=== PATIENT | female | born 1985 | race Caucasian/White ===

== ENCOUNTER 2016-08-24 07:39 | Emergency (ER) | payer MEDICAID ==
[~2016-08-24] VITALS: Ht 170.2 cm; Wt 88.6 kg
[~2016-08-24 07:39] MED LIST: AMOXICILLIN 50500 MG PO; AMOXICILLIN875 MG PO; BACTRIM DS 8001 TAB PO; CEFTIN 250250 MG/TAB PO; CEPHALEXIN500 M1 PO; CLEOCIN HC150 MG/CAP PO; DOXYCYCLINE 10100 MG PO; HYDROCODONE/APAP; LORTAB 5/500 501 TAB PO; MACROBID 1100 MG/CAP PO; METRONIDAZOLE500 MG PO; MOTRIN 800800 MG/TAB PO; NAPROSYN500 MG PO; NO HOME MEDICATIONS; NORCO 325 MG-51 TAB PO; PHENERGAN 25 TA25 MG PO; PRENATAL MVI PO; SEPTRA DS 8001 TAB PO; TYLENOL 325MG325 MG PO; ZITHROMAX 250M250 MG PO; ZOFRAN ODT4 MG PO
[2016-08-24 07:40] VITALS: BP 125/87; TEMP 98
[2016-08-24 08:24] LABS: BASO # 0.1 (0.0-0.2); BASO % 0.8 % (0.0-2.0); EOS # 0.2 (0.0-0.7); EOS % 1.9 % (0-4.0); GRAN # 6.4 (1.4-6.5); GRAN % 70.4 % (42.2-75.2); HEMATOCRIT 39.8 % (37.0-47.0); LYMPH # 1.9 (1.2-3.4); LYMPH % 21.2 % (20.0-51.0); MEAN CELL VOLUME 87 fl (80.0-100.0); MEAN CORPUSCULAR HEMOGLOBIN 28 pg (27.0-31.0); MEAN CORPUSCULAR HGB CONC 33 g/dl (33.0-37.0); MEAN PLATELET VOLUME 11.1 fl (7.4-10.4); MONO # 0.5 (0.1-0.6); MONO % 5.4 % (1.7-9.3); PLATELET COUNT 221 K/mm3 (130-400); RED BLOOD COUNT 4.59 M/mm3 (4.10-5.30); REDCELL DISTRIBUTION WIDTH-CV 13.2 % (11.5-14.5); WHITE BLOOD COUNT 9.1 K/mm3 (4.8-10.8)
[2016-08-24 08:34] LABS: ADJUSTED CALCIUM 9.2 mg/dL (8.4-10.2); ALBUMIN 3.9 gm/dL (3.5-5.0); BILIRUBIN,TOTAL 0.4 mg/dL (0.0-1.0); CALCIUM 9.1 mg/dL (8.4-10.2); CREATININE, serum 0.71 mg/dL (0.52-1.25); POTASSIUM 3.9 mmol/L (3.4-5.0); TOTAL PROTEIN 7.2 gm/dL (6.4-8.2)
[2016-08-24 09:11] VITALS: PULSE 75
== END 2016-08-24 09:12 | disposition home or self-care (01) ==
LOC: COL.ER 07:39
PROVIDERS: Physician Assistant
DX: K29.70 Gastritis, unspecified, without bleeding (principal)
CPT/HCPCS: C9113; J2405; J2765; J7030

== ENCOUNTER 2016-11-29 03:32 | Emergency (ER) | payer MEDICAID ==
[~2016-11-29] VITALS: Ht 170.2 cm; Wt 88.6 kg
[2016-11-29 03:35] VITALS: TEMP 98.1
[2016-11-29 04:16] LABS: BASO # 0.1 (0.0-0.2); BASO % 0.5 % (0.0-2.0); EOS # 0.2 (0.0-0.7); EOS % 2.4 % (0-4.0); GRAN # 5.4 (1.4-6.5); GRAN % 55.7 % (42.2-75.2); HEMATOCRIT 38.5 % (37.0-47.0); HEMOGLOBIN 12.9 g/dl (12.5-16.0); LYMPH # 3.4 (1.2-3.4); LYMPH % 35.1 % (20.0-51.0); MEAN CELL VOLUME 84 fl (80.0-100.0); MEAN CORPUSCULAR HEMOGLOBIN 28 pg (27.0-31.0); MEAN CORPUSCULAR HGB CONC 34 g/dl (33.0-37.0); MEAN PLATELET VOLUME 10.7 fl (7.4-10.4); MONO # 0.6 (0.1-0.6); MONO % 6.1 % (1.7-9.3); PLATELET COUNT 243 K/mm3 (130-400); REDCELL DISTRIBUTION WIDTH-CV 13.5 % (11.5-14.5); WHITE BLOOD COUNT 9.8 K/mm3 (4.8-10.8)
[2016-11-29 04:29] LABS: ADJUSTED CALCIUM 8.9 mg/dL (8.4-10.2); ALANINE AMINOTRANSFERASE 18 U/L (9-52); ALBUMIN 4.1 gm/dL (3.5-5.0); ALKALINE PHOSPHATASE 69 U/L (50-136); ANION GAP 11 mmol/L (7-16); BILIRUBIN,TOTAL 0.9 mg/dL (0.0-1.0); BLOOD UREA NITROGEN 20 mg/dL (7-17); C-REACTIVE PROTEIN < 0.5 mg/dL (0.0-0.9); CARBON DIOXIDE 22 mmol/L (22-30); CHLORIDE 105 mmol/L (98-107); CREATININE, serum 0.73 mg/dL (0.52-1.25); GLUCOSE 90 mg/dL (74-106); LIPASE 94 U/L (23-300); SODIUM 137 mmol/L (137-145); TOTAL PROTEIN 6.6 gm/dL (6.4-8.2)
[2016-11-29 05:05] VITALS: BP 147/84; PULSE 81
== END 2016-11-29 05:05 | disposition home or self-care (01) ==
LOC: COL.ER 03:32
PROVIDERS: Emergency Medicine
DX: R10.11 Right upper quadrant pain (principal)
CPT/HCPCS: J1170; J2405; J7030

== ENCOUNTER 2017-01-12 16:59 | Emergency (ER) | payer MEDICAID ==
[~2017-01-12] VITALS: Ht 170.2 cm; Wt 88.6 kg
[2017-01-12 17:05] VITALS: TEMP 98.8
[2017-01-12] MEDS ORDERED: PREDNISONE20 MG PO (18:08)
[2017-01-12 18:24] VITALS: BP 122/68; PULSE 80
== END 2017-01-12 18:25 | disposition home or self-care (01) ==
LOC: COL.ER 16:59
DX: J06.9 Acute upper respiratory infection, unspecified (principal); Z87.891 Personal history of nicotine dependence; Z87.442 Personal history of urinary calculi
CPT/HCPCS: J7512

== ENCOUNTER 2017-03-31 18:30 | Emergency (ER) | payer MEDICAID ==
[~2017-03-31] VITALS: Ht 170.2 cm; Wt 89.5 kg
[~2017-03-31 18:30] MED LIST changes: +PREDNISONE20 MG PO
[2017-03-31 18:37] VITALS: TEMP 98.8
[2017-03-31 19:22] LABS: BASO # 0.1 (0.0-0.2); BASO % 0.7 % (0.0-2.0); EOS # 0.4 (0.0-0.7); EOS % 4.7 % (0-4.0); GRAN # 4.9 (1.4-6.5); GRAN % 56.4 % (42.2-75.2); HEMOGLOBIN 12.3 g/dl (12.5-16.0); LYMPH # 2.8 (1.2-3.4); LYMPH % 32.6 % (20.0-51.0); MEAN CELL VOLUME 86 fl (80.0-100.0); MEAN CORPUSCULAR HEMOGLOBIN 28 pg (27.0-31.0); MEAN CORPUSCULAR HGB CONC 32 g/dl (33.0-37.0); MEAN PLATELET VOLUME 10.7 fl (7.4-10.4); MONO # 0.5 (0.1-0.6); MONO % 5.4 % (1.7-9.3); PLATELET COUNT 219 K/mm3 (130-400); RED BLOOD COUNT 4.44 M/mm3 (4.10-5.30); REDCELL DISTRIBUTION WIDTH-CV 14.2 % (11.5-14.5); WHITE BLOOD COUNT 8.7 K/mm3 (4.8-10.8)
[2017-03-31 19:27] LABS: PH 6 (5-8); URINE APPEARANCE Hazy; URINE BACTERIA None Seen /hpf; URINE BILIRUBIN Negative (NEGATIVE); URINE BLOOD Negative (NEGATIVE); URINE COLOR Yellow; URINE GLUCOSE Negative (NEGATIVE); URINE KETONE Negative (NEGATIVE); URINE RBC 0-2 /hpf; URINE UROBILINOGEN Negative (NEGATIVE); URINE WBC None Seen /hpf
[2017-03-31 19:35] LABS: ADJUSTED CALCIUM 9.2 mg/dL (8.4-10.2); ALBUMIN 3.9 gm/dL (3.5-5.0); BILIRUBIN,TOTAL 0.5 mg/dL (0.0-1.0); C-REACTIVE PROTEIN 0.8 mg/dL (0.0-0.9); CALCIUM 9.1 mg/dL (8.4-10.2); CREATININE, serum 0.83 mg/dL (0.52-1.25); POTASSIUM 3.7 mmol/L (3.4-5.0)
[2017-03-31 20:12] VITALS: BP 101/89; PULSE 84
== END 2017-03-31 20:13 | disposition home or self-care (01) ==
LOC: COL.ER 18:30
PROVIDERS: Emergency Medicine
DX: K80.50 Calculus of bile duct without cholangitis or cholecystitis without obstruction (principal)
CPT/HCPCS: J1170; J2405; J7030

== ENCOUNTER 2017-11-28 19:58 | Emergency (ER) | payer MEDICAID ==
[~2017-11-28] VITALS: Ht 170.2 cm; Wt 88.6 kg
[2017-11-28 20:03] VITALS: TEMP 98.9
[2017-11-28] MEDS ORDERED: BACTRIM DS 8001 TAB PO (20:42)
[2017-11-28] MEDS ORDERED: NORCO 325 MG-51 TAB PO (20:42)
[2017-11-28 21:07] VITALS: BP 131/92; PULSE 91
== END 2017-11-28 21:07 | disposition home or self-care (01) ==
LOC: COL.ER 19:58
DX: L02.31 Cutaneous abscess of buttock (principal); F17.210 Nicotine dependence, cigarettes, uncomplicated; Z87.442 Personal history of urinary calculi

== ENCOUNTER 2018-02-12 16:53 | Emergency (ER) | payer SELFPAY ==
[~2018-02-12] VITALS: Ht 170.2 cm; Wt 87.3 kg
[2018-02-12 16:55] VITALS: BP 139/67; TEMP 98.6
[2018-02-12 17:45] LABS: BASO # 0.1 (0.0-0.2); BASO % 0.7 % (0.0-2.0); EOS # 0.4 (0.0-0.7); EOS % 2.5 % (0-4.0); GRAN # 9.5 (1.4-6.5); GRAN % 68.2 % (42.2-75.2); HEMATOCRIT 39.2 % (37.0-47.0); HEMOGLOBIN 13.1 g/dl (12.5-16.0); LYMPH # 3.3 (1.2-3.4); MEAN CELL VOLUME 85 fl (80.0-100.0); MEAN CORPUSCULAR HEMOGLOBIN 29 pg (27.0-31.0); MEAN CORPUSCULAR HGB CONC 33 g/dl (33.0-37.0); MEAN PLATELET VOLUME 10.7 fl (7.4-10.4); MONO # 0.6 (0.1-0.6); MONO % 4.2 % (1.7-9.3); PLATELET COUNT 225 K/mm3 (130-400); REDCELL DISTRIBUTION WIDTH-CV 13.7 % (11.5-14.5)
[2018-02-12 17:53] LABS: ALBUMIN 3.8 gm/dL (3.5-5.0); BILIRUBIN,TOTAL 0.3 mg/dL (0.0-1.0); C-REACTIVE PROTEIN 0.7 mg/dL (0.0-0.9); CALCIUM 8.9 mg/dL (8.4-10.2); CREATININE, serum 0.68 mg/dL (0.52-1.25); POTASSIUM 3.4 mmol/L (3.4-5.0); TOTAL PROTEIN 7.3 gm/dL (6.4-8.2); URIC ACID 5.3 mg/dL (2.5-6.2)
[2018-02-12 18:15] LABS: ERYTHROCYTE SEDIMENTATION RATE 1 mm/hr (0-20)
[2018-02-12 18:34] VITALS: PULSE 74
== END 2018-02-12 18:35 | disposition home or self-care (01) ==
LOC: COL.ER 16:53
PROVIDERS: Nurse Practitioner
DX: M79.89 Other specified soft tissue disorders (principal); F17.210 Nicotine dependence, cigarettes, uncomplicated

== ENCOUNTER 2019-01-19 13:45 | Emergency (ER) | payer SELFPAY ==
[~2019-01-19] VITALS: Ht 170.2 cm; Wt 86.4 kg
[2019-01-19 14:35] VITALS: BP 151/86; TEMP 97.7
[2019-01-19 15:52] LABS: BASO # 0.1 (0.0-0.2); BASO % 0.6 % (0.0-2.0); EOS # 0.2 (0.0-0.7); GRAN # 6.6 (1.4-6.5); HEMATOCRIT 37.2 % (37.0-47.0); HEMOGLOBIN 12.3 g/dl (12.5-16.0); LYMPH # 2.4 (1.2-3.4); LYMPH % 24.7 % (20.0-51.0); MEAN CELL VOLUME 83 fl (80.0-100.0); MEAN CORPUSCULAR HEMOGLOBIN 27 pg (27.0-31.0); MEAN CORPUSCULAR HGB CONC 33 g/dl (33.0-37.0); MEAN PLATELET VOLUME 10.2 fl (7.4-10.4); MONO # 0.4 (0.1-0.6); MONO % 4.5 % (1.7-9.3); PLATELET COUNT 235 K/mm3 (130-400); RED BLOOD COUNT 4.51 M/mm3 (4.10-5.30); REDCELL DISTRIBUTION WIDTH-CV 13.5 % (11.5-14.5)
[2019-01-19 16:02] LABS: ALANINE AMINOTRANSFERASE 13 U/L (9-52); ALBUMIN 4.2 gm/dL (3.5-5.0); ALKALINE PHOSPHATASE 87 U/L (50-136); ANION GAP 9 mmol/L (7-16); AST,SGOT 18 U/L (15-37); BILIRUBIN,TOTAL 0.4 mg/dL (0.0-1.0); BLOOD UREA NITROGEN 15 mg/dL (7-17); CALCIUM 9.4 mg/dL (8.4-10.2); CARBON DIOXIDE 27 mmol/L (22-30); CHLORIDE 106 mmol/L (98-107); CREATININE, serum 0.77 (0.52-1.25); GLUCOSE 87 mg/dL (74-106); POTASSIUM 3.6 mmol/L (3.4-5.0); SODIUM 142 mmol/L (137-145); TOTAL PROTEIN 7.4 gm/dL (6.4-8.2)
[2019-01-19 16:14] LABS: TROPONIN-I < 0.012 ng/mL (0.000-0.035)
[2019-01-19 16:43] VITALS: PULSE 72
== END 2019-01-19 16:43 | disposition home or self-care (01) ==
LOC: COL.ER 13:45
PROVIDERS: Physician Assistant
DX: R07.89 Other chest pain (principal); Z87.891 Personal history of nicotine dependence; Z87.442 Personal history of urinary calculi

== ENCOUNTER 2019-06-11 18:38 | Emergency (ER) | payer SELFPAY ==
[~2019-06-11] VITALS: Ht 162.6 cm; Wt 86.4 kg
[2019-06-11 18:42] VITALS: BP 118/67; PULSE 87; TEMP 98
[2019-06-11] MEDS ORDERED: PREDNISONE20 MG PO (19:07)
== END 2019-06-11 19:39 | disposition home or self-care (01) ==
LOC: COL.ER 18:38
DX: M79.89 Other specified soft tissue disorders (principal)
CPT/HCPCS: J7512

== ENCOUNTER 2019-06-18 08:03 | Emergency (ER) | payer SELFPAY ==
[~2019-06-18] VITALS: Ht 165.1 cm; Wt 86.4 kg
[2019-06-18 08:14] VITALS: BP 123/68
[2019-06-18] MEDS ORDERED: PRINIVIL20 MG PO (08:28)
[2019-06-18 09:30] LABS: BASO % 0.4 % (0.0-2.0); EOS # 0.1 (0.0-0.7); EOS % 1.9 % (0-4.0); GRAN # 4.2 (1.4-6.5); GRAN % 60.9 % (42.2-75.2); LYMPH # 2.2 (1.2-3.4); LYMPH % 31.5 % (20.0-51.0); MEAN CELL VOLUME 88 fl (80.0-100.0); MEAN CORPUSCULAR HEMOGLOBIN 29 pg (27.0-31.0); MEAN CORPUSCULAR HGB CONC 33 g/dl (33.0-37.0); MEAN PLATELET VOLUME 10.3 fl (7.4-10.4); MONO # 0.3 (0.1-0.6); MONO % 4.9 % (1.7-9.3); PLATELET COUNT 222 K/mm3 (130-400); RED BLOOD COUNT 4.16 M/mm3 (4.10-5.30); REDCELL DISTRIBUTION WIDTH-CV 13.2 % (11.5-14.5)
[2019-06-18 09:46] LABS: HEMATOCRIT 36.5 % (37.0-47.0)
[2019-06-18 10:07] LABS: ALANINE AMINOTRANSFERASE 13 U/L (9-52); ALBUMIN 3.7 gm/dL (3.5-5.0); ALKALINE PHOSPHATASE 67 U/L (50-136); ANION GAP 6 mmol/L (7-16); AST,SGOT 18 U/L (15-37); BILIRUBIN,TOTAL 0.4 mg/dL (0.0-1.0); BLOOD UREA NITROGEN 14 mg/dL (7-17); CALCIUM 8.6 mg/dL (8.4-10.2); CARBON DIOXIDE 27 mmol/L (22-30); CHLORIDE 108 mmol/L (98-107); GLUCOSE 87 mg/dL (74-106); POTASSIUM 3.7 mmol/L (3.4-5.0); SODIUM 140 mmol/L (137-145); TOTAL PROTEIN 6.5 gm/dL (6.4-8.2)
[2019-06-18 10:08] LABS: C-REACTIVE PROTEIN < 0.5 mg/dL (0.0-0.9)
[2019-06-18] MEDS ORDERED: PRILOSEC 20MG20 MG PO (10:15)
[2019-06-18 10:54] VITALS: PULSE 57; TEMP 97.7
[2019-06-19] MEDS ORDERED: CARAFATE S1 GM/10 ML PO (05:41)
== END 2019-06-18 10:54 | disposition home or self-care (01) ==
LOC: COL.ER 08:03
PROVIDERS: Physician Assistant
DX: K29.70 Gastritis, unspecified, without bleeding (principal); I10 Essential (primary) hypertension; F17.210 Nicotine dependence, cigarettes, uncomplicated; Z87.442 Personal history of urinary calculi

== ENCOUNTER 2019-06-19 04:41 | Emergency (ER) | payer SELFPAY ==
[~2019-06-19] VITALS: Ht 165.1 cm; Wt 86.4 kg
[~2019-06-19 04:41] MED LIST changes: +PRILOSEC 20MG20 MG PO; +PRINIVIL20 MG PO
[2019-06-19 04:51] VITALS: BP 129/63; PULSE 72; TEMP 98.2
[2019-06-19] MEDS ORDERED: CARAFATE S1 GM/10 ML PO (05:41)
== END 2019-06-19 07:23 | disposition home or self-care (01) ==
LOC: COL.ER 04:41
DX: K29.70 Gastritis, unspecified, without bleeding (principal); I10 Essential (primary) hypertension; Z87.442 Personal history of urinary calculi; Z87.891 Personal history of nicotine dependence

== ENCOUNTER 2020-02-12 22:09 | Emergency (ER) | payer SELFPAY ==
[~2020-02-12] VITALS: Ht 165.1 cm; Wt 86.4 kg
[~2020-02-12 22:09] MED LIST changes: +CARAFATE S1 GM/10 ML PO
[2020-02-12 22:13] VITALS: BP 146/92; TEMP 97.8
[2020-02-12] MEDS ORDERED: AMOXICILLIN 8751 TAB PO (22:58)
[2020-02-12 23:08] VITALS: PULSE 77
== END 2020-02-12 23:08 | disposition home or self-care (01) ==
LOC: COL.ER 22:09
DX: K02.9 Dental caries, unspecified (principal); K04.7 Periapical abscess without sinus; I10 Essential (primary) hypertension

== ENCOUNTER 2020-05-05 21:17 | Emergency (ER) | payer SELFPAY ==
[~2020-05-05] VITALS: Ht 165.1 cm; Wt 86.4 kg
[~2020-05-05 21:17] MED LIST changes: +AMOXICILLIN 8751 TAB PO
[2020-05-05 21:38] VITALS: BP 148/90; PULSE 80; TEMP 98.2
[2020-05-05] MEDS ORDERED: AMOXICILLIN 8751 TAB PO (22:30)
== END 2020-05-05 23:13 | disposition home or self-care (01) ==
LOC: COL.ER 21:17
DX: S51.851A Open bite of right forearm, initial encounter (principal); I10 Essential (primary) hypertension; W54.0XXA Bitten by dog, initial encounter; Y92.009 Unspecified place in unspecified non-institutional (private) residence as the place of occurrence of the external cause

== ENCOUNTER 2020-05-08 09:36 | Emergency (ER) | payer SELFPAY ==
[~2020-05-08] VITALS: Ht 165.1 cm; Wt 88.6 kg
[2020-05-08 09:41] VITALS: BP 136/88; TEMP 97.8
[2020-05-08 10:55] VITALS: PULSE 65
== END 2020-05-08 10:56 | disposition home or self-care (01) ==
LOC: COL.ER 09:36
DX: T14.8XXA Other injury of unspecified body region, initial encounter (principal); Z23 Encounter for immunization; W54.0XXA Bitten by dog, initial encounter
CPT/HCPCS: 90375

== ENCOUNTER 2020-05-22 08:32 | Outpatient (RCR) | payer SELFPAY ==
[2020-05-22 08:44] VITALS: BP 129/83; PULSE 84; TEMP 97.2
== END 2020-08-09 | disposition home or self-care (01) ==
LOC: COL.ER
DX: Z23 Encounter for immunization (principal); Z20.3 Contact with and (suspected) exposure to rabies

== ENCOUNTER 2021-01-08 07:20 | Emergency (ER) | payer SELFPAY ==
[~2021-01-08] VITALS: Ht 165.1 cm; Wt 88.6 kg
[2021-01-08 07:26] VITALS: TEMP 98.1
[2021-01-08 07:58] LABS: COLLECTION METHOD CLEAN CATCH
[2021-01-08 08:23] LABS: MUCOUS Present /lpf; PH 6 (5-8); URINE APPEARANCE Cloudy; URINE BACTERIA None Seen /hpf; URINE BILIRUBIN Negative (NEGATIVE); URINE BLOOD 3+ (NEGATIVE); URINE COLOR Amber; URINE GLUCOSE Negative (NEGATIVE); URINE KETONE Negative (NEGATIVE); URINE LEUKOCYTE ESTERASE Negative (NEGATIVE); URINE NITRATE Negative (NEGATIVE); URINE PROTEIN(semi-quant) 2+ (NEGATIVE); URINE UROBILINOGEN Negative (NEGATIVE)
[2021-01-08 09:34] VITALS: BP 151/90; PULSE 57
== END 2021-01-08 09:34 | disposition home or self-care (01) ==
LOC: COL.ER 07:20
PROVIDERS: Family Medicine
DX: S39.012A Strain of muscle, fascia and tendon of lower back, initial encounter (principal); Z87.442 Personal history of urinary calculi; X58.XXXA Exposure to other specified factors, initial encounter
CPT/HCPCS: J1885; J2360

== ENCOUNTER 2022-09-19 08:56 | Emergency (ER) | payer SELFPAY ==
[~2022-09-19] VITALS: Ht 165.1 cm; Wt 87.3 kg
[2022-09-19 09:00] VITALS: BP 155/80; TEMP 98.2
[2022-09-19] MEDS ORDERED: AKTOB 5 ML5 ML OP (09:37)
[2022-09-19] MEDS ORDERED: CEPHALEXIN500 M1 PO (09:37)
[2022-09-19 09:50] VITALS: PULSE 82
== END 2022-09-19 09:53 | disposition home or self-care (01) ==
LOC: COL.ER 08:56
DX: H10.9 Unspecified conjunctivitis (principal); L03.213 Periorbital cellulitis